=== PATIENT | female | born 1965 | race Caucasian/White ===

== ENCOUNTER → 2020-02-27 16:57 | Outpatient (CLI) | payer BC, SELFPAY ==
[2017-06-14 16:51] VITALS: BMI 19.6
--- NOTE | 2020-02-27 17:01 | RAD_ITS ---
STUDY: X-RAY CHEST REASON FOR EXAM: Female, 54 years old. TB exposure TECHNIQUE: PA and lateral chest. COMPARISON: January 31, 2011. FINDINGS: The lungs are clear and expanded. There is no demonstrated pleural abnormality. Normal size heart. Normal mediastinum and cristina. Normal visualized pulmonary arteries. Normal visualized aortic arch and descending thoracic aorta. Mild thoracic dextroscoliosis. Single Stephenson tawanna stabilizing the thoracic spine.. There is no demonstrated abnormality of the visualized soft tissue structures of the upper abdomen. RAD/Chest PA and Lateral IMPRESSION: No acute cardiopulmonary disease. Electronically Signed: Jared Manuel MD at 0:28 EDT , Service support ,
--- NOTE | 2020-02-27 17:02 | RAD_ITS ---
STUDY: X-RAY - LEFT ANKLE REASON FOR EXAM: Female, 54 years old. Ankle pain, diagnosis of posterior tibial tendon dysfunction stress fracture. No recent injury TECHNIQUE: 3 view(s) of the ankle. COMPARISON: None. FINDINGS: Normal visualized distal tibia and fibula. Normal medial and lateral malleoli. Normal tibiotalar articulation and ankle mortise. Normal visualized talus and calcaneus. The visualized subtalar, talonavicular, calcaneocuboid and tarsal articulations are normal. The soft tissue structures are unremarkable. RAD/Ankle min 3 Views IMPRESSION: No acute findings in the ankle. Electronically Signed: Jared Manuel MD at 2:23 EDT , Service support ,
== END ==
PROVIDERS: PCP Family Medicine; Referring Provider Family Medicine; Visit Provider Family Medicine
DX: M25.572 Pain in left ankle and joints of left foot (principal); Z20.1 Contact with and (suspected) exposure to tuberculosis
CPT/HCPCS: 71046; 73610